=== PATIENT | male | born 1945 | race Caucasian/White ===

== ENCOUNTER 2017-07-23 17:07 | Emergency (ER) | payer MEDICARE, OTHER ==
[2017-07-23 17:37] VITALS: BP 134/68
--- NOTE | 2017-07-23 18:04 | UC ---
Skin Complaint HPI - HPI Summary HPI Summary: noticed tick on neck this morning around 10:30am after going to [place] a hike. Attempted to take it out without success. - History of Current Complaint Chief Complaint: [employer]kin Time Seen by Provider: 07/23/17 17:14 Stated Complaint: TICK ON NECK Hx Obtained From: Patient Onset/Duration: Sudden Onset, Lasting Hours Skin Exposure Onset/Duration: Hours Ago Onset Severity: Mild Current Severity: Mild Pain Intensity: 1 Aggravating Factor(s): Nothing Alleviating Factor(s): Nothing Associated Signs & Symptoms: Positive: Negative Related History: Insect Bite/Sting - Allergy/Home Medications Allergies/Adverse Reactions: Allergies Allergy/AdvReac Type Severity Reaction Status Date / Time No Known Allergies Allergy Verified 07/23/17 17:37 Home Medications: Home Medications Aspirin 81 mg PO DAILY 07/23/17 [History Confirmed 07/23/17] Atorvastatin* [Lipitor 80 MG*] 80 mg PO DAILY 07/23/17 [History Confirmed ] Losartan TAB* [Cozaar TAB*] 50 mg PO DAILY 07/23/17 [History Confirmed 07/23/17] Metoprolol Tartrate TAB* [Lopressor TAB*] 50 mg PO DAILY 07/23/17 [History Confirmed 07/23/17] Review of Systems Skin: Other - insect bite All Other Systems Reviewed And Are Negative: Yes PMH/Surg Hx/FS Hx/Imm Hx Previously Healthy: Yes Endocrine History: Dyslipidemia Cardiovascular History: Hypertension - Surgical History Surgical History: Yes Surgery Procedure, Year, and Place: kidney donation - Social History Alcohol Use: None Substance Use Type: None Smoking Status (MU): Former Smoker Physical Exam Triage Information Reviewed: Yes Appearance: Well-Appearing, No Pain Distress, Well-Nourished Vital Signs: Initial Vital Signs Temp 98.0 F 07/23/17 17:29 Pulse 61 07/23/17 17:29 Resp 20 07/23/17 17:29 BP 134/68 07/23/17 17:29 Pulse Ox 100 07/23/17 17:29 Vital Signs Reviewed: Yes ENT Exam: Normal Neck: Positive: Supple, Nontender, No Lymphadenopathy Skin Exam: Other - female deer tick on anterior right aspect of neck at inferior insertion of right SCM Course/Dx - Course Course Of Treatment: TIck removed successfully. Local antisepsis applied with iodine solution. - Diagnoses Provider Diagnoses: Tick bite Discharge - Sign-Out/Discharge Documenting (check all that apply): Discharge/Admit/Transfer - Discharge Plan Condition: Stable Disposition: HOME Patient Education Materials: Tick Bite (ED) Referrals: Grupo Munson MD [Primary Care Provider] - - Billing Disposition and Condition Condition: STABLE Disposition: HOME
== END 2017-07-23 18:00 | disposition home or self-care (01) ==
LOC: UCEAST 17:07
DX: S10.96XA Insect bite of unspecified part of neck, initial encounter (principal); W57.XXXA Bitten or stung by nonvenomous insect and other nonvenomous arthropods, initial encounter; Y93.01 Activity, walking, marching and hiking; Y92.830 Public park as the place of occurrence of the external cause; E78.5 Hyperlipidemia, unspecified; I10 Essential (primary) hypertension; Z87.891 Personal history of nicotine dependence
CPT/HCPCS: 99211; G0463

== ENCOUNTER 2021-07-15 08:49 | Observation (INO) ==
[~2021-07-15 08:49] MED LIST: Buffered Lidocaine 1% SYRIN 1 ml INTRADERM ONE; HYDROmorphone 1 MG/1 ML SYRINGE IV PRN; Lactated Ringers 1000 ml BAG 1,000 ML IV SCH; Naloxone 0.4 mg VIAL 0.4 mg/ml 1 ml VIAL IV PRN; Ondansetron 4 mg VIAL 2 MG/ML 2 ml VIAL IV PRN; fentaNYL 100 mcg/2 ml 50 MCG/ML VIAL IV PRN
[2021-07-15] MEDS ORDERED: ceFAZolin 2 GM PREMIX 2 GM/50 ML BAG ONE (09:23)
[2021-07-15 09:28] LABS: Hematocrit 46 % (42-52); Hemoglobin 15.4 g/dL (14.0-18.0); Mean Corpuscular HGB Conc 34 g/dL (31-36); Mean Corpuscular Hemoglobin 31 pg (27-31); Mean Corpuscular Volume 93 fL (80-94); Mean Platelet Volume 8.3 fL (7.4-10.4); Platelet Count 200 10^3/uL (150-450); Red Blood Count 4.92 10^6 /uL (4.18-5.48); Red Cell Distribution Width 14 % (10-15); White Blood Count 8.8 10^3/uL (3.5-10.8)
[2021-07-15 10:12] LABS: Calcium 9.2 mg/dL (8.6-10.3); Potassium 4.4 mmol/L (3.5-5.0); eGFR CKD-EPI 56.9 (>60)
[2021-07-15] MEDS ORDERED: Propofol 10 MG/ML 20 ML BTL ONE ×2 (10:12→13:52)
[2021-07-15] MEDS ORDERED: Dexamethasone IV 4 MG/ML VIAL 1 ml VIAL ONE (10:12)
[2021-07-15] MEDS ORDERED: Rocuronium 50 mg VIAL 10 mg/ml 5 ml VIAL (50 mg) ONE (10:12)
[2021-07-15] MEDS ORDERED: Midazolam 2 mg/2 ml VIAL 1 mg/ml 2 ml VIAL (2 mg) ONE (10:12)
[2021-07-15] MEDS ORDERED: Ondansetron 4 mg VIAL 2 MG/ML 2 ml VIAL ONE (10:12)
[2021-07-15] MEDS ORDERED: fentaNYL 250 mcg/5 ml 50 MCG/ML 5 ml VIAL (250 MCG) ONE ×2 (10:12→12:19)
[2021-07-15] MEDS ORDERED: ROPIVACAINE 5 MG/ML 30 ML BTL (0.5%) ONE (11:05)
[2021-07-15] MEDS ORDERED: Magnesium Hydroxide LIQ 30 ML UDC PO PRN (12:24)
[2021-07-15] MEDS ORDERED: Morphine 2 MG/ML SYRINGE IV PRN (12:24)
[2021-07-15] MEDS ORDERED: Ondansetron 4 mg VIAL 2 MG/ML 2 ml VIAL IV PRN (12:24)
[2021-07-15] MEDS ORDERED: Ondansetron ODT 4 mg TAB 4 MG TAB PO PRN (12:24)
[2021-07-15] MEDS ORDERED: Lactulose 30 ml UDC PO PRN (12:24)
[2021-07-15] MEDS ORDERED: Nitroglycerin 0.6 mg TAB SL PRN (12:30)
[2021-07-15] MEDS ORDERED: Acetaminophen IV 1 GM/100ML 100 ML IV ONE (13:27)
[2021-07-15] MEDS ORDERED: Phenylephrine IV 10 MG/ML 1 ml VIAL ONE ×2 (13:46)
[2021-07-15] MEDS: Lactated Ringers 1000 ml BAG 1,000 ML IV SCH (17:30)
[2021-07-15] MEDS: Magnesium Hydroxide LIQ 30 ML UDC PO SCH (20:55)
[2021-07-15] MEDS: ceFAZolin VIAL 1 GM in NS 0.9% 50 ML 50 ML IVPB SCH (21:09)
[2021-07-16] MEDS: ceFAZolin VIAL 1 GM in NS 0.9% 50 ML 50 ML IVPB SCH ×2 (03:21→11:48)
[2021-07-16] MEDS: Lactated Ringers 1000 ml BAG 1,000 ML IV SCH ×2 (03:27→20:48)
[2021-07-16 05:55] LABS: Hematocrit 34 % (42-52); Hemoglobin 11.6 g/dL (14.0-18.0); Mean Platelet Volume 8.6 fL (7.4-10.4); Platelet Count 163 10^3/uL (150-450)
[2021-07-16 06:10] LABS: Calcium 8.2 mg/dL (8.6-10.3); Potassium 4.5 mmol/L (3.5-5.0); eGFR CKD-EPI 64.6 (>60)
[2021-07-16] MEDS ORDERED: Lactated Ringers 1000 ml BAG 1,000 ML IV ONE (08:50)
[2021-07-16] MEDS: Vitamin THERAPEUTIC TAB PO SCH (11:31)
[2021-07-16] MEDS: Magnesium Hydroxide LIQ 30 ML UDC PO SCH ×2 (11:32→21:03)
[2021-07-16 12:43] LABS: Hematocrit 31 % (42-52); Hemoglobin 10.8 g/dL (14.0-18.0)
[2021-07-16 23:16] LABS: Hematocrit 28 % (42-52); Hemoglobin 9.7 g/dL (14.0-18.0)
[2021-07-16 23:57] LABS: Albumin/Globulin Ratio 1.8 (1-3); Calcium 7.8 mg/dL (8.6-10.3); Globulin 1.7 g/dL (2-4); Potassium 4.1 mmol/L (3.5-5.0); Total Bilirubin 0.6 mg/dL (0.2-1.0); Total Protein 4.7 g/dL (6.4-8.9); eGFR CKD-EPI 64.6 (>60)
[2021-07-17 05:28] LABS: Hematocrit 29 % (42-52); Hemoglobin 10.2 g/dL (14.0-18.0); Mean Platelet Volume 8.1 fL (7.4-10.4); Platelet Count 126 10^3/uL (150-450)
[2021-07-17] MEDS: Lactated Ringers 1000 ml BAG 1,000 ML IV SCH (05:55)
[2021-07-17] MEDS: Magnesium Hydroxide LIQ 30 ML UDC PO SCH (08:43)
[2021-07-17] MEDS: Vitamin THERAPEUTIC TAB PO SCH (08:43)
[2021-07-17 15:32] VITALS: BP 154/81
== END 2021-07-17 16:15 | disposition home or self-care (01) ==
LOC: OR 08:49 → SSU 08:49
PROVIDERS: ADMIT Orthopaedic Surgery Adult Reconstructive Orthopaedic Surgery; ATTEND Orthopaedic Surgery Adult Reconstructive Orthopaedic Surgery